=== PATIENT | female | born 1955 | race Caucasian/White ===

== ENCOUNTER 2018-12-21 08:16 | Inpatient (IN) ==
[2018-12-21] MEDS ORDERED: NS 1,000 ML IV ONE (08:26)
--- NOTE | 2018-12-21 08:35 | PROVIDER DOCUMENTATION ---
HPI-Respiratory General - General Chief Complaint: SEPSIS ALERT - P Stated Complaint: SOB Time Seen by Provider: 12/21/18 08:23 Source: patient Allergies/Adverse Reactions: Patient Allergies Allergy/AdvReac Type Severity Reaction Status Date / Time No Known Allergies Allergy Verified 07/28/18 18:20 Home Medications: Home Medication List Medication Instructions Recorded Confirmed Last Taken Type Aspirin 81 mg PO DAILY 02/25/12 02/25/12 02/28/12 History Fish Oil/Dha/Epa [Fish Oil 1,200 1 each PO DAILY 02/25/12 02/25/12 03/03/12 21:00 History mg Fish Oil] Gemfibrozil [Lopid] 600 mg PO BID 02/25/12 02/25/12 03/03/12 21:00 History Glipizide [Glucotrol] 10 mg PO DAILY 02/25/12 02/25/12 03/02/12 History Gluc Mcnulty/Chondro Mcnulty A/Vit C/Mn 1 each PO DAILY 02/25/12 02/25/12 03/03/12 07:00 History [Glucosamine Chondroitin Tab] Ibuprofen 800 mg PO BID 02/25/12 02/25/12 02/27/12 History Niacin E.r. [Niaspan] 1,000 mg PO DAILY 02/25/12 02/25/12 03/03/12 21:00 History Ranitidine [Zantac] 150 mg PO BID 03/04/12 03/04/12 03/03/12 21:00 History Tramadol [Ultram] 50 mg PO Q6H PRN PRN 03/04/12 03/04/12 03/01/12 History Naproxen Sodium [Anaprox Ds] 550 mg PO BID #20 tab 07/28/18 Unknown Rx Acetaminophen with Codeine 1 ea PO Q6H PRN PRN #14 tab 10/02/18 Unknown Rx [Tylenol with Codeine #3 Tablet] Cephalexin [Keflex] 500 mg PO 4XDAY #30 cap 10/02/18 Unknown Rx - History of Present Illness-Resp Nature of Presenting Problem: 63 y/o WF c/o moderate SOB since last night. Pt notes that last night that she felt that she couldnt get a "good breath" before be and awoke this am with B lower pain in her lungs. Pt also admits that she is being treated for UTI. Quality of Pain: reports: aching Severity in ED: reports: mild Onset/Duration: reports: 4-6 hours ago Timing: reports: still present Cough Quality/Degree: reports: mild Episode Frequency: no prior episodes Current Respiratory Medication Therapy: Initiated see nurses note Modifying Factors: improves with: coughing, oxygen Associated Symptoms: reports: shortness of breath. denies: chest pain/soreness Similar Symptoms Previously?: No Recently seen or treated by another doctor?: No Review of Systems - Adult - REVIEW OF SYSTEMS - ADULT Constitutional: reports: no symptoms reported, see HPI Eyes: reports: no symptoms reported, see HPI Ears, Nose, Mouth & Throat: reports: no symptoms reported, see HPI Cardiovascular: reports: no symptoms reported, see HPI Respiratory: reports: see HPI, cough, dyspnea on exertion, shortness of breath Gastrointestinal: reports: no symptoms reported, see HPI Genitourinary: reports: no symptoms reported, see HPI Musculoskeletal: reports: no symptoms reported, see HPI Integumentary: reports: no symptoms reported, see HPI Neurological: reports: no symptoms reported, see HPI Psychiatric: reports: no symptoms reported, see HPI Endocrine: reports: no symptoms reported, see HPI Hematologic/Lymphatic: reports: no symptoms reported, see HPI Allergic/Immunologic: reports: no symptoms reported, see HPI All Other Systems: Reviewed and Negative Past History - Adult - PAST MEDICAL HISTORY-ADULT Review of Records: reports: Nursing Assessment Review, Medications Reviewed, Social history reviewed & non-contributory. Major Childhood Illnesses: reports: denies history Cardiovascular: reports: hyperlipidemia Endocrine/Immune: reports: Diabetes - PRIOR SURGERIES/PROCEDURES Surgical/Procedure History: reports: cholecystectomy, tonsillectomy, hernia repair - IMMUNIZATION STATUS Childhood Immunizations: See Nurse Assessment Flu Vaccine: See Nurse Assessment - FAMILY HISTORY Family History: reviewed, not pertinent Physical Exam-General - PHYSICAL EXAM-ADULT Initial Vital Signs Reviewed: Yes - CONSTITUTIONAL General Appearance: alert, mild distress - EYES Eyes: PERRL/EOMI - HEAD, EARS, NOSE, MOUTH & THROAT HENMT: normocephalic/atraumatic, moist mucous membranes, normal ENT inspection - NECK Neck: non-tender, full range of motion, supple, normal inspection - RESPIRATORY Respiratory: chest non-tender, no pleuratic chest pain, no respiratory distress, no accessory muscle use, wheezing - CARDIOVASCULAR Cardiovascular: normal peripheral pulses, no edema, no gallop, no JVD, no murmur , tachycardia - GASTROINTESTINAL (ABDOMEN) Abdominal Exam: normal bowel sounds, non tender, soft, no organomegaly, no pulsatile mass - LYMPHATIC Lymphatic: no adenopathy - MUSCULOSKELETAL Back Exam: normal inspection, no CVA tenderness, no vertebral tenderness Extremity: normal range of motion, non-tender, normal gait, normal inspection, no pedal edema, no calf tenderness, normal capillary refill - SKIN Integumentary: normal color, normal turgor - NEUROLOGIC Neurologic: wearing apparel presser II-XII nml as tested, grossly normal, no motor/sensory deficits - PSYCHIATRIC Psych/Mental Status: normal mood/affect, normal thought content, normal thought process, oriented x 3 - HEART Score HEART Score: History: Slightly Suspicious HEART Score: ECG: Non-Specific Repolarization Disturbance/LBBB/PM HEART Score: Age: 45-65 Years HEART Score: Risk Factors for Atherosclerotic Disease: 1 or 2 Risk Factors HEART Score: Troponin: < or = Normal Limit Total HEART Score:: 3 Progress - PLAN OF CARE/RESULTS Progress/Plan/Lab Results: Vital Signs - 8 hr 12/21/18 08:19 12/21/18 08:21 Temperature 97.9 F 100.9 F H Pulse Rate 130 H Respiratory Rate 20 Blood Pressure 131/63 O2 Sat by Pulse Oximetry 86 L Laboratory Results - last 24 hr 12/21/18 12/21/18 12/21/18 08:38 08:38 08:38 WBC 25.45 H RBC 4.47 Hgb 12.0 Hct 39.5 MCV 88.4 MCH 26.8 L MCHC 30.4 L RDW Std Deviation 16.1 H Plt Count 280 MPV 12.0 H Immature Gran % (Auto) 0.5 Neut % (Auto) 94.0 H Lymph % (Auto) 1.7 L Crosby % (Auto) 3.3 Eos % (Auto) 0.3 Baso % (Auto) 0.2 Immature Gran # (Auto) 0.13 H Neut # (Auto) 23.94 H Lymph # (Auto) 0.43 L Crosby # (Auto) 0.84 H Eos # (Auto) 0.07 Baso # (Auto) 0.04 D-Dimer, Quantitative 0.66 H Specimen Type Sample Site pH pCO2 pO2 HCO3 Base Excess Oxyhemoglobin ABG O2 Sat (Calculated) ABG O2 Saturation ABG Carboxyhemoglobin ABG Methemoglobin Clifton Test A-a O2 Difference Total Hemoglobin Lactate Blood Gas Modality FiO2 % Sodium Potassium Chloride Carbon Dioxide Anion Gap BUN Creatinine Estimated GFR/1.73 m2 BUN/Creatinine Ratio Glucose Calculated Osmolality Calcium Total Bilirubin AST ALT Alkaline Phosphatase Troponin T < 0.010 Loy-Z-Pzcprbloghk Pept Total Protein Albumin Globulin Albumin/Globulin Ratio Plasma Lactate 12/21/18 12/21/18 12/21/18 08:38 08:38 08:38 WBC RBC Hgb Hct MCV MCH MCHC RDW Std Deviation Plt Count MPV Immature Gran % (Auto) Neut % (Auto) Lymph % (Auto) Crosby % (Auto) Eos % (Auto) Baso % (Auto) Immature Gran # (Auto) Neut # (Auto) Lymph # (Auto) Crosby # (Auto) Eos # (Auto) Baso # (Auto) D-Dimer, Quantitative Specimen Type Sample Site pH pCO2 pO2 HCO3 Base Excess Oxyhemoglobin ABG O2 Sat (Calculated) ABG O2 Saturation ABG Carboxyhemoglobin ABG Methemoglobin Clifton Test A-a O2 Difference Total Hemoglobin Lactate Blood Gas Modality FiO2 % Sodium 139 Potassium 3.7 Chloride 99 Carbon Dioxide 25 Anion Gap 16 BUN 22 Creatinine 0.9 Estimated GFR/1.73 m2 > 60 BUN/Creatinine Ratio 24 Glucose 163 H Calculated Osmolality 284 Calcium 9.7 Total Bilirubin 0.50 AST 22 ALT 18 Alkaline Phosphatase 76 Troponin T Nmr-E-Lwxqvhtlszf Pept 46 Total Protein 7.7 Albumin 4.7 Globulin 3.0 Albumin/Globulin Ratio 2.0 Plasma Lactate 1.7 12/21/18 09:50 WBC RBC Hgb Hct MCV MCH MCHC RDW Std Deviation Plt Count MPV Immature Gran % (Auto) Neut % (Auto) Lymph % (Auto) Crosby % (Auto) Eos % (Auto) Baso % (Auto) Immature Gran # (Auto) Neut # (Auto) Lymph # (Auto) Crosby # (Auto) Eos # (Auto) Baso # (Auto) D-Dimer, Quantitative Specimen Type ARTERIAL Sample Site L RADIAL pH 7.43 pCO2 41 pO2 50 L HCO3 26.7 H Base Excess 2.6 Oxyhemoglobin 87.1 L* ABG O2 Sat (Calculated) 13.4 L ABG O2 Saturation 91.9 L ABG Carboxyhemoglobin 3.80 H ABG Methemoglobin 1.4 Clifton Test YES A-a O2 Difference 48.0 Total Hemoglobin 10.9 L Lactate 1.50 Blood Gas Modality ROOM AIR FiO2 % 21.0 Sodium Potassium Chloride Carbon Dioxide Anion Gap BUN Creatinine Estimated GFR/1.73 m2 BUN/Creatinine Ratio Glucose Calculated Osmolality Calcium Total Bilirubin AST ALT Alkaline Phosphatase Troponin T Gsm-F-Jiesqnkgnhx Pept Total Protein Albumin Globulin Albumin/Globulin Ratio Plasma Lactate Orders Category Date Time Status Nursing- Obtain EKG ONCE Care 12/21/18 08:23 Active CHEST-1 VIEW [RAD] Stat Exams 12/21/18 08:[address] ANGIOGRM PULMONARY ARTERIES [CT] Stat Exams 12/21/18 10:06 Completed ABG [RESP] Routine Lab 12/21/18 09:50 Completed BLOOD CULTURE [BLDCUL] Stat Lab 12/21/18 08:25 Ordered CBC WITH ELECTRONIC DIFF [HEME] Stat Lab 12/21/18 08:38 Completed COMPREHENSIVE METABOLIC PANEL [CHEM] Stat Lab 12/21/18 08:38 Completed D-DIMER [COAG] Stat Lab 12/21/18 08:38 Completed LACTATE, PLASMA [CHEM] Stat Lab 12/21/18 08:38 Completed PRO B-NATRIURETIC PEPTIDE Stat Lab 12/21/18 08:38 Completed TROPONIN T Stat Lab 12/21/18 08:38 Completed 0.9% Sodium Chloride Inj [Ns] 1,000 ml Med 12/21/18 08:26 Discontinued IV 999 mls/hr CefTRIAXONE [Rocephin] 1 gm Med 12/21/18 10:41 Discontinued 0.9% Sodium Chloride Inj [Ns] 50 ml IV NOW Oxygen Device Stat Oth 12/21/18 08:25 Active EKG [EKG] Stat Ther 12/21/18 08:23 Draft Result Diagrams: 12/21/18 08:38 12/21/18 08:38 - CONSULTS/PCP/HOSPITALIST Notification #1 *Consult/PCP/Hospitalist*: Dr Cabrera Time Discussed: 11:38 Consult Disposition: Will see in ED, Admit Departure - Departure Date of Disposition Decision: 12/21/18 Time of Disposition Decision: 11:38 DIAGNOSIS: Pneumonia, UTI (urinary tract infection), Leukocytosis, Hypoxia Disposition: ADMITTED INPATIENT 09 Certified Medical Emergency: Emergent Condition: Fair Referrals and Follow-Ups: Clifton Craven MD [Primary Care Provider] - - Critical Care Note This patient required my direct & personal management of CC.: No Attestation - Physician/ SUKUMAR Attestation Patient care was provided by Advanced Practice Provider:: No The physician spent face to face time with patient:: Yes Advanced Practice Provider documentation review:: Supervising physician onsite and consulted in the evaluation and care of this patient. The physician did have a face to face encounter with the patient.
[2018-12-21 08:59] LABS: BASO# 0.04 X1000 (0.0-0.2); BASO% 0.2 % (0.0-0.8); EOS# 0.07 X1000 (0.0-0.7); EOS% 0.3 % (0.0-10.0); HEMATOCRIT 39.5 % (37.0-47.0); IMM GRAN# 0.13 X1000 (0.0-0.04); IMM GRAN% 0.5 % (0.0-0.5); LYMPH# 0.43 X1000 (1.2-3.4); LYMPH% 1.7 % (20.5-51.1); MCH 26.8 PG (27-31); MCHC 30.4 g/dL (33-37); MCV 88.4 FL (81-99); MONO# 0.84 X1000 (0.11-0.59); MONO% 3.3 % (1.7-9.3); NEUT# 23.94 X1000 (1.4-6.5); PLT 280 X1000 (130-400); RBC 4.47 XMIL (4.2-5.4); RDW 16.1 % (11.5-14.5); WBC 25.45 X1000 (4.8-10.8)
--- NOTE | 2018-12-21 09:13 | Diag Imaging Result Doc PS360 ---
EXAM: CHEST-1 VIEW HISTORY: sob TECHNIQUE: Chest single view COMPARISON: None. FINDINGS: The lungs are well expanded. The heart is not enlarged. The vessels are not distended. There are mild increased markings in the lung bases. Questionable tiny left effusion. IMPRESSION: Questionable small basilar infiltrates and tiny left effusion. Follow-up PA and lateral recommended. Electronically signed by Manfred Craig 12/21/2018 9:11 AM
[2018-12-21 09:26] LABS: AGAP 16; ALBUMIN 4.7 g/dL (3.5-5.0); ALKALINE PHOSPHATASE 76 U/L (32-104); BUN 22 mg/dL (8-22); CALCIUM 9.7 mg/dL (8.8-10.2); CHLORIDE 99 mmol/L (98-107); COSMO 284; CREATININE 0.9 mg/dL (0.5-0.9); ESTIMATED GFR > 60; GLUCOSE 163 mg/dL (70-104); GOT 22 U/L (10-30); GPT 18 U/L (10-36); POTASSIUM 3.7 mmol/L (3.5-5.1); SODIUM 139 mmol/L (136-145); TCO2 25 mmol/L (25-35); TOTAL PROTEIN 7.7 g/dL (6.3-8.3)
--- NOTE | 2018-12-21 09:28 | EKG Report ---
Test Performed on : 12/21/2018 08:27:24 AM Test Reason : sob Blood Pressure : / mmHG Vent. Rate : 114 BPM Atrial Rate : 114 BPM P-R Int : 188 ms QRS Dur : 080 ms QT Int : 294 ms P-R-T Axes : 062 -27 041 degrees QTc Int : 405 ms Sinus tachycardia. Otherwise normal ECG When compared with ECG of 01-MAR-2012 07:22, Vent. rate has increased BY 42 BPM Unconfirmed Result
[2018-12-21 10:19] LABS: BE 2.6 mmoll (-3.0-3.0); BLOOD TYPE ARTERIAL; HCO3-(ACT) 26.7 mmoll (20.0-26.0); METHB 1.4 % (0.0-1.5); O2(CT) 13.4 mL/dL (15.0-23.0); O2HB 87.1 % (95.0-99.0); PCO2(98.6) 41 mmHg (35-45); PO2(98.6) 50 mmHg (60-100); SAMPLE BLOOD; SAO2 91.9 % (95.0-100.0); THB 10.9 g/dL (11.5-17.4); pH(98.6) 7.43 (7.35-7.45)
[2018-12-21 10:23] LABS: ALLEN TEST YES; MODALITY ROOM AIR
[2018-12-21] MEDS ORDERED: ROCEPHIN 1 GM in NS 50 ML IV ONE (10:41)
--- NOTE | 2018-12-21 11:08 | Diag Imaging Result Doc PS360 ---
EXAM: CT ANGIOGRM PULMONARY ARTERIES HISTORY: difficulty breathing, left arm swollen TECHNIQUE: Images were obtained from the lung apices through bases as per standard protocol. This exam was performed using automated exposure control, adjustment of mA or kV according to patient size, and/or use of iterative reconstruction technique. COMPARISON: None. FINDINGS: Pulmonary artery: Somewhat limited opacification of the distal ranges.. No proximal filling defects are appreciated. There is no evidence for acute pulmonary embolism embolism. No evidence for right heart strain. The main pulmonary artery is enlarged suggesting pulmonary arterial hypertension. Mediastinum: The heart size appears normal. No pericardial effusion is appreciated. No pathologically enlarged lymph nodes are identified. No aortic aneurysm. There is no evidence for aortic dissection. No hilar lymphadenopathy. Airway: No large airway obstruction. No focal mass. Pulmonary parenchyma: There is marked pulmonary emphysema. There is increased linear attenuation within the apices consistent with scarring. There is a 1 cm more nodular component within the left apex. Consider CT thorax or PET in three months. There is bibasilar atelectasis or consolidation with trace bilateral pleural effusions. Limited view of the abdomen reveals hepatic steatosis, hepatomegaly, and cholecystectomy IMPRESSION: 1.No evidence for acute pulmonary embolism. 2.Marked pulmonary emphysema with pulmonary arterial hypertension. 3.Nodular component left apex associated with parenchymal scarring. Consider follow-up CT or PET/CT scan in three months. 4.Bibasilar consolidation or atelectasis with trace effusions. Electronically signed by Liya Patel 12/21/2018 11:06 AM
--- NOTE | 2018-12-21 11:34 | ED EKG INTERP ---
This chart was entered by Abigail Figueroa Scribe, acting as scribe for Ankur Padilla MD. EKG Interpretation - EKG Time of EKG reading by physician:: 08:27 EKG Read and Signed by:: Ankur Padilla EKG Interpretation (*Must complete 3 of following elements*): Normal Rate: 114 Rhythm: sinus tachycardia [place]: normal QRS: normal CO Interval: normal ST Wave: normal Attestation - Physician/ SUKUMAR Attestation Patient care was provided by Advanced Practice Provider:: No The physician spent face to face time with patient:: Yes Advanced Practice Provider documentation review:: Supervising physician onsite and consulted in the evaluation and care of this patient. The physician did have a face to face encounter with the patient. This chart was documented by the indicated scribe, (Abigail Figueroa Scribe) and accurately reflects the services I performed and decisions made by me, Ankur Padilla MD, as attested by the provider's signature.
[2018-12-21] MEDS ORDERED: ZOFRAN IV PRN (11:43)
[2018-12-21] MEDS ORDERED: TYLENOL PO PRN (11:43)
[2018-12-21] MEDS ORDERED: DUONEB (A & A) INH ONE (11:43)
[2018-12-21] MEDS: ROCEPHIN 1 GM in NS 50 ML IV SCH (11:45)
[2018-12-21] MEDS: DOXYCYCLINE 100 MG in NS 250 ML IV SCH ×3 (11:45→23:35)
[2018-12-21] MEDS: DUONEB (A & A) INH PRN ×2 (16:45→20:17)
[2018-12-21 17:55] LABS: INR 0.87; PROTIME 12.2 Seconds (11.0-16.0)
[2018-12-21 17:56] LABS: PTT 41.1 Seconds (22.3-41.8)
[2018-12-21] MEDS ORDERED: ULTRAM PO PRN (18:34)
[2018-12-21] MEDS: MOTRIN PO SCH ×2 (19:44→23:40)
[2018-12-21] MEDS: PATIENT'S OWN MED PO SCH (19:44)
[2018-12-21] MEDS: GLUCOSAMINE 500 MG/CHONDROITIN 400 MG PO SCH ×2 (19:44→23:40)
[2018-12-21] MEDS: LYRICA PO SCH ×2 (19:44→23:40)
[2018-12-21] MEDS: VICON-C PO SCH ×2 (19:44→23:39)
[2018-12-21] MEDS: FISH OIL CONCENTRATE PO SCH ×2 (19:44→23:40)
[2018-12-21] MEDS: LOPID PO SCH ×2 (19:44→23:40)
[2018-12-21] MEDS: ZANTAC PO SCH ×2 (19:45→23:39)
[2018-12-21 20:35] LABS: BILIRUBIN URINE NEGATIVE (NEGATIVE); BLOOD URINE NEGATIVE (NEGATIVE); CLARITY CLEAR (CLEAR); COLOR YELLOW; KETONE URINE TRACE mg/dL (NEGATIVE); LEUKOCYTES URINE NEGATIVE (NEGATIVE); NITRITE URINE NEGATIVE (NEGATIVE); PH URINE 6.5; PROTEIN URINE TRACE mg/dL (NEGATIVE); SP GRAVITY URINE 1.005; UROBILINOGEN URINE NORMAL
[2018-12-21 20:36] LABS: URINE BACTERIA 1+ /HFP; URINE CAST NONE SEEN /LPF; URINE CRYSTAL NONE SEEN /HPF; URINE EPITHELIAL CELLS <10 /HPF (<10); URINE SOURCE CLEAN CATCH; URINE WBC <10 /HPF (<10); URINE YEAST NONE SEEN /HPF
[2018-12-21] MEDS ORDERED: NAPROXEN SODIUM 550 MG PO SCH (21:00)
--- NOTE | 2018-12-22 03:59 | HISTORY AND PHYSICAL ---
CHIEF COMPLAINT: Shortness of breath. HISTORY OF PRESENT ILLNESS: The patient is a pleasant 63-year-old female who presented to the hospital with increased cough, congestion and shortness of breath. She notes that she has difficulty getting in a good breath. She has had wheezing at times. Denies fevers or chills. She does state that she has chronic and frequent urinary tract infections. ALLERGIES: No known drug allergies. MEDICATIONS: I do not have an active medication list, although appears to take aspirin, fish oil, a reflux medicine and diabetes medicine. REVIEW OF SYSTEMS: As noted above. Positive cough, congestion, shortness of breath and increased work of breathing. Denies any chest pain or palpitations. Denies fevers or chills. Does have urinary frequency and urgency. PAST MEDICAL HISTORY: Significant for diabetes, hyperlipidemia. PAST SURGICAL HISTORY: She has had a cholecystectomy, tonsillectomy and hernia repair. FAMILY HISTORY: Noncontributory. SOCIAL HISTORY: She does not smoke or drink. PHYSICAL EXAMINATION: VITAL SIGNS: Reviewed. Temperature 97 degrees, pulse 130s, respiratory 20, BP 131/63, saturation 86% on room air. GENERAL: The patient is awake, in mild to moderate respiratory distress. Very pleasant, currently not having chest pain. We will continue to follow. Continue antibiotics, breathing treatments, oxygen. We will rule out sepsis. White count at 25, glucose is at 16, and we will follow. cc: Lazaro Cabrera MD [facility]
[2018-12-22] MEDS: GLUCOTROL PO SCH ×2 (06:39→15:33)
[2018-12-22 07:45] LABS: HEMATOCRIT 35.1 % (37.0-47.0); HEMOGLOBIN 10.4 g/dL (12.0-16.0); MCH 26.7 PG (27-31); MCHC 29.6 g/dL (33-37); MPV 11.8 FL (7.4-10.4); RBC 3.9 XMIL (4.2-5.4); RDW 16.2 % (11.5-14.5); WBC 12.67 X1000 (4.8-10.8)
[2018-12-22 07:47] LABS: AGAP 14; ALBUMIN 4.1 g/dL (3.5-5.0); ALKALINE PHOSPHATASE 61 U/L (32-104); BUN 18 mg/dL (8-22); CALCIUM 9.7 mg/dL (8.8-10.2); CHLORIDE 101 mmol/L (98-107); COSMO 279; CREATININE 0.8 mg/dL (0.5-0.9); ESTIMATED GFR > 60; GLUCOSE 119 mg/dL (70-104); GOT 18 U/L (10-30); GPT 16 U/L (10-36); POTASSIUM 3.6 mmol/L (3.5-5.1); SODIUM 138 mmol/L (136-145); TCO2 24 mmol/L (25-35); TOTAL PROTEIN 7.1 g/dL (6.3-8.3)
[2018-12-22] MEDS: DUONEB (A & A) INH PRN ×5 (08:10→23:50)
[2018-12-22] MEDS: PATIENT'S OWN MED PO SCH ×2 (10:07→21:27)
[2018-12-22] MEDS: NIASPAN PO SCH ×2 (10:07→10:10)
[2018-12-22] MEDS: ASPIRIN PO SCH (10:07)
[2018-12-22] MEDS: FISH OIL CONCENTRATE PO SCH ×2 (10:08→21:25)
[2018-12-22] MEDS: GLUCOSAMINE 500 MG/CHONDROITIN 400 MG PO SCH ×2 (10:08→21:25)
[2018-12-22] MEDS: LOPID PO SCH ×2 (10:08→21:25)
[2018-12-22] MEDS: MOTRIN PO SCH ×2 (10:08→21:25)
[2018-12-22] MEDS: LYRICA PO SCH ×2 (10:08→21:26)
[2018-12-22] MEDS: ZANTAC PO SCH ×2 (10:08→21:25)
[2018-12-22] MEDS: DOXYCYCLINE 100 MG in NS 250 ML IV SCH ×2 (11:58→23:51)
[2018-12-22] MEDS: ROCEPHIN 1 GM in NS 50 ML IV SCH (14:34)
--- NOTE | 2018-12-22 18:17 | PROGRESS NOTE ---
DATE: 12/22/2018 SUBJECTIVE: The patient notes that she feels a lot better this morning. Has improved air movement. Still feels short of breath and fatigued. PHYSICAL EXAM: Temperature 99.1, pulse 92, respiratory rate 18, BP 127/65.General: Patient is in no current respiratory distress. HEENT: Normocephalic. Neck: Supple. Cardiovascular: Regular rate. No murmurs. Chest: Clear. No crackles currently. No wheezing. Abdomen: Soft, nondistended. Extremities: Moves all extremities. Neurologic: No changes. ASSESSMENT: 1. Pneumonia. 2. Chronic obstructive pulmonary disease with mild exacerbation. 3. Leukocytosis. 4. Sepsis secondary to pneumonia, resolved. 5. Diabetes. 6. Pulmonary hypertension. PLAN: We are going to continue Rocephin and doxycycline. Continue oxygen breathing treatments. Hopefully, she can improve and discharge home tomorrow. Her white count is improved from 25 down to 12. . cc: Lazaro Cabrera MD
--- NOTE | 2018-12-22 18:57 | HISTORY AND PHYSICAL ---
ADDENDUM: PHYSICAL EXAMINATION: VITAL SIGNS: Reviewed and examined. GENERAL: The patient is in mild respiratory distress. She is having difficulty completing sentences. HEENT: Normocephalic. NECK: Supple. CARDIOVASCULAR: Regular rate. CHEST: Decreased breath sounds bilaterally. No current wheezing. No crackles. ABDOMEN: Soft, obese, nondistended. EXTREMITIES: Moves all extremities. NEUROLOGIC: No changes. ASSESSMENT: 1. Pneumonia. 2. Leukocytosis. 3. Sepsis. 4. Diabetes. PLAN: We are going to admit her to the hospital. IV fluids, antibiotics, breathing treatments, place her on oxygen, and will follow. cc: Lazaro Cabrera MD
[2018-12-22] MEDS: VICON-C PO SCH (21:25)
[2018-12-23 05:52] LABS: HEMATOCRIT 32.6 % (37.0-47.0); HEMOGLOBIN 9.9 g/dL (12.0-16.0); MCHC 30.4 g/dL (33-37); MCV 89.1 FL (81-99); RBC 3.66 XMIL (4.2-5.4); RDW 15.6 % (11.5-14.5); WBC 7.36 X1000 (4.8-10.8)
[2018-12-23 06:09] VITALS: BP 123/66
[2018-12-23] MEDS: GLUCOTROL PO SCH (06:29)
[2018-12-23] MEDS: DUONEB (A & A) INH PRN (07:45)
[2018-12-23] MEDS ORDERED: DOXYCYCLINE PO SCH (09:00)
[2018-12-23] MEDS: NIASPAN PO SCH ×2 (09:34→09:39)
[2018-12-23] MEDS: GLUCOSAMINE 500 MG/CHONDROITIN 400 MG PO SCH (09:34)
[2018-12-23] MEDS: FISH OIL CONCENTRATE PO SCH (09:35)
[2018-12-23] MEDS: LYRICA PO SCH (09:35)
[2018-12-23] MEDS: MOTRIN PO SCH (09:35)
[2018-12-23] MEDS: ASPIRIN PO SCH (09:35)
[2018-12-23] MEDS: ZANTAC PO SCH (09:35)
[2018-12-23] MEDS: LOPID PO SCH (09:35)
[2018-12-23] MEDS: PATIENT'S OWN MED PO SCH (09:38)
--- NOTE | 2018-12-23 20:06 | DISCHARGE SUMMARY ---
ADMISSION DATE: 12/21/2018 DISCHARGE DATE: 12/23/2018 CONSULTATIONS: None. PERTINENT PROCEDURES: Chest x-ray showed questionable small basilar infiltrates and left tiny effusion. Pulmonary arteriogram showed no evidence of PE, marked pulmonary emphysema with pulmonary arterial hypertension, nodular component of left apex associated with parenchymal scarring. Consider follow-up CT or PET CT scan in 3 months, bibasilar consolidation or atelectasis with trace effusions. DISCHARGE DIAGNOSES: 1. Pneumonia, improved. 2. Leukocytosis, resolved. 3. Sepsis, resolved. 4. Diabetes. Continue home regimen. 5. Chronic obstructive pulmonary disease exacerbation mild and improved. 6. Pulmonary arterial hypertension. HOSPITAL COURSE: Briefly, Ms. Davis is a 63-year-old female with a past medical history of diabetes and hyperlipidemia, presented to [facility] ED with increased cough, congestion and shortness of breath, wheezing. Denied any fever or chills. Workup in the ED revealed leukocytosis, sepsis and pneumonia. She was initiated to the hospital, started on antibiotics, IV fluids, bronchodilators and supplemental O2. She has improved throughout the course of her hospitalization and will be discharged back home today. VITAL SIGNS: At time of discharge, temperature is 98 degrees, heart rate 66, respirations 20, blood pressure 120/66, O2 is 98%. DISCHARGE DIET: Regular. DISCHARGE MEDICATIONS: 1. Omnicef 30 mg p.o. b.i.d. 2. Doxycycline 1 p.o. b.i.d. 3. Zantac 150 mg p.o. b.i.d. 4. Ultram 50 mg p.o. q.6 hours p.r.n. 5. Ozempic 0.225 mg subcu q 7 days. 6. Niacin ER 1000 mg p.o. daily. 7. Lyrica 150 mg p.o. at bedtime. 8. Lyrica 75 mg p.o. daily. 9. Lopid 600 mg p.o. b.i.d. 10. Glucotrol 10 mg p.o. b.i.d. 11. Glucosamine chondroitin 1 each p.o. b.i.d. 12. Fish oil 1 each p.o. b.i.d. 13. Vitamin B complex 1 tab p.o. at bedtime. 14. Aspirin 81 mg p.o. daily. 15. Alpha lipoic acid 800 mg p.o. b.i.d. 16. Acetaminophen with codeine number 3, 1 each p.o. q.6 hours p.r.n. FOLLOWUP: Ms. Davis is being discharged back home with self care. She is to follow up with her primary care provider Dr. Justice Craven in the next 1 to 2 weeks. The patient may require repeat CT or PET-CT in 3 months. Dictated by TAIWO Nunes for Lazaro Cabrera MD cc: MD Clifton Francisco MD
--- NOTE | 2018-12-23 22:45 | DISCHARGE SUMMARY ---
ADMISSION DATE: 12/21/2018 DISCHARGE DATE: 12/23/2018 DISCHARGE DIAGNOSES: 1. Sepsis secondary to pneumonia, resolved. 2. Leukocytosis resolved. 3. Febrile illness, resolved. 4. Pneumonia. 5. Diabetes. 6. Chronic obstructive pulmonary disease. 7. Hyperlipidemia. 8. Pulmonary hypertension. CONSULTATIONS: None. PROCEDURES: Echo. BRIEF HOSPITAL COURSE: The patient is a 63-year-old female who presented to the hospital with increased cough, congestion, increased work of breathing, shortness of breath. She was noted to have a white count of 25. She had pneumonia and fever and was diagnosed with sepsis. Thankfully, she continued to improve. On discharge, her cough and congestion have all but resolved. Ambulating without any difficulty. She is noted to have a white count that has dropped down to 7. She is afebrile. Her CT was abnormal, demonstrating pulmonary hypertension. DISPOSITION: Patient will be discharged home. She will follow up outpatient with treatment facility of choice. Discussed with her that she needs to follow up in 1 to 2 weeks to re-evaluate her pneumonia. She will need to follow up on her pulmonary hypertension as well. No other changes made on her diet or medications otherwise. cc: Lazaro Cabrera MD
== END 2018-12-23 12:14 | disposition home or self-care (01) | DRG 871 ==
LOC: P.ED 08:16 → P.MEDSURG 08:17
PROVIDERS: ATTEND Family Medicine

== ENCOUNTER 2019-05-15 10:13 | Inpatient (IN) ==
--- NOTE | 2019-05-15 11:41 | Diag Imaging Result Doc PS360 ---
CHEST-PORTABLE - 05/15/2019 INDICATION: fever, cough COMPARISON: 12/30/2018 FINDINGS: There are some patchy interstitial infiltrates in the lung bases bilaterally. Heart size is top normal. No pneumothorax or pleural effusion. There is advanced COPD. IMPRESSION: COPD. Faint bibasilar interstitial infiltrates which may reflect pneumonia or viral infection. Electronically signed by Chris Mahan 05/15/2019 11:39 AM
[2019-05-15 14:19] LABS: URINE SOURCE CLEAN CATCH
[2019-05-15 14:24] LABS: BASO# 0.03 X1000 (0.0-0.2); BASO% 0.4 % (0.0-0.8); BILIRUBIN URINE SMALL (NEGATIVE); BLOOD URINE NEGATIVE (NEGATIVE); COLOR YELLOW; GLUCOSE URINE >1000 mg/dL (NEGATIVE); HEMATOCRIT 45.5 % (37.0-47.0); HEMOGLOBIN 14.7 g/dL (12.0-16.0); KETONE URINE 40 mg/dL (NEGATIVE); LEUKOCYTES URINE NEGATIVE (NEGATIVE); LYMPH# 2.76 X1000 (1.2-3.4); LYMPH% 33.5 % (20.5-51.1); MCH 27.3 PG (27-31); MCHC 32.3 g/dL (33-37); MCV 84.4 FL (81-99); MONO# 0.76 X1000 (0.11-0.59); MONO% 9.2 % (1.7-9.3); MPV 11.8 FL (7.4-10.4); NEUT% 56.9 % (42.2-75.2); NITRITE URINE NEGATIVE (NEGATIVE); PLT 257 X1000 (130-400); PROTEIN URINE 70 mg/dL (NEGATIVE); RBC 5.39 XMIL (4.2-5.4); RDW 16.2 % (11.5-14.5); SP GRAVITY URINE 1.037; TURBIDITY URINE CLEAR (CLEAR); UROBILINOGEN URINE 2 mg/dL (NORMAL); WBC 8.25 X1000 (4.8-10.8)
[2019-05-15 14:52] LABS: AGAP 20; ALB/GLOB RATIO 1.2; ALBUMIN 4.5 g/dL (3.5-5.0); ALKALINE PHOSPHATASE 82 U/L (32-104); BUN 22 mg/dL (8-22); CALCIUM 9.9 mg/dL (8.8-10.2); CHLORIDE 91 mmol/L (98-107); COSMO 275; CREATININE 0.9 mg/dL (0.5-0.9); ESTIMATED GFR > 60; GLUCOSE 124 mg/dL (70-104); GOT 80 U/L (10-30); GPT 55 U/L (10-36); POTASSIUM 3.5 mmol/L (3.5-5.1); SODIUM 135 mmol/L (136-145); TCO2 24 mmol/L (25-35); TOTAL BILIRUBIN 0.32 mg/dL (0.20-1.00); TOTAL PROTEIN 8.2 g/dL (6.3-8.3)
[2019-05-15 14:54] LABS: UR EPITHELIAL CELLS <10 /HPF (<10); URINE BACTERIA NEGATIVE /HPF; URINE RBC <10 /HPF (<10); URINE WBC <10 /HPF (<10)
[2019-05-15 14:55] LABS: URINE CASTS GRANULAR PRESENT; URINE CRYSTALS NONE SEEN; URINE SMALL ROUND CELLS NONE SEEN; URINE YEAST NONE SEEN
[2019-05-15] MEDS ORDERED: ZOSYN 3.375 GM in NS 50 ML IV ONE (15:17)
[2019-05-15] MEDS: NS 1,000 ML IV SCH (16:51)
--- NOTE | 2019-05-15 17:00 | HISTORY AND PHYSICAL ---
PRIMARY CARE PROVIDER: Radha MARAVILLA. CHIEF COMPLAINT: Fever. HISTORY OF PRESENT ILLNESS: Ms Tawanna Davis is a 63-year-old female who has recently been treated for upper respiratory infection, also treated for it three separate times. Apparently, she had been treated twice and then she went to the [facility] on a cruise from April 29 to May 06. When she returned on May 06, she started having symptoms of upper respiratory infection once again. No fever at that time. No shortness of breath. She took azithromycin and steroids and the sinuses had cleared up. Yesterday she claims to have had a fever of 99.9, a dry cough, sweats, sore throat, headache, but denies any shortness of breath. She is tolerating room air and she is currently been admitted and tested for COVID-19. The chest x-ray shows some pneumonia, so we will treat that as well. PAST MEDICAL HISTORY: 1. COPD, no home O2. 2. Diabetes mellitus type 2. 3. Hyperlipidemia. 4. Hypertension. 5. Obstructive sleep apnea, on CPAP at night. SURGICAL HISTORY: 1. Cholecystectomy. 2. Tonsillectomy and adenoidectomy. 3. Ventral hernia repair post cholecystectomy. SOCIAL HISTORY: Quit smoking in 2004. She started at the age of 11 and eventually worked her way up to two packs per day. Denies alcohol or illicit drug use. She is for the third time, has four adult children. 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 FAMILY HISTORY: Mother COPD. Father COPD. ALLERGIES: No known drug allergies. HOME MEDICATIONS: Have not been reconciled yet. REVIEW OF SYSTEMS: Fourteen point review of systems are complete and all were negative except for those mentioned in the above HPI. PHYSICAL EXAMINATION: VITAL SIGNS: Temperature 98.2 degrees, heart rate 101, respiratory rate 19, O2 saturation 96% on 2 L nasal cannula. She was down to 86% on room air. GENERAL: Ms. Tawanna Davis is a 63-year-old female. She is in no acute distress. She is able answer questions appropriately. HEENT: Atraumatic, normocephalic. Pupils equal, round, reactive to light. Extraocular movements intact. Mucous membranes are moist. NECK: Trachea midline. CARDIOVASCULAR: S1, S2. Regular rate and rhythm. No rubs, gallops, murmurs. No lower extremity edema. +2 dorsalis and radial pulses. Negative JVD or carotid bruits. PULMONARY: Clear to auscultation, bilateral breath sounds. No accessory muscle use or work of breathing noted. ABDOMEN: Soft, nontender, nondistended. Positive bowel sounds x4. EXTREMITIES: Moves all extremities equally. Full range of motion. NEUROLOGIC: Alert and oriented x3. Follows commands. Sensory is intact. SKIN: Warm, dry, intact. LABORATORY DATA: White blood cells 8000, hemoglobin 14, hematocrit 45, platelet count 257,000. Sodium 135, potassium 3.5, BUN 22, creatinine 0.9, glucose 124, calcium 9.9, bilirubin 0.32, AST 80, ALT 55, albumin is 4.5, lactate 1.0. Urinalysis 70 protein, greater than 1000 glucose, 40 ketones, small bilirubin, 2 urobilinogen. Blood cultures pending. Influenza A and B are both negative. IMAGING: Chest x-ray shows COPD with faint bibasilar infiltrates, may reflect pneumonia or viral infection. ASSESSMENT AND PLAN: 1. Fever that is subjective and reported mild hypoxia that required oxygen. High risk for a viral infection. Flu is negative. She is being tested for Coronavirus Disease 2019. She has been placed on droplet isolation and oxygen as needed. 2. Bibasilar pneumonia, could be viral versus bacterial. There is no elevated white count. Lactate is normal. We will go ahead and just do Zosyn. 3. Diabetes mellitus type 2. We will do pattern blood glucoses, sliding scale insulin, diabetic diet. 4. Hypertension. Waiting for home medications to be reconciled. 5. Obstructive sleep apnea. She can wear her CPAP from home. 6. Chronic obstructive pulmonary disease. No obvious signs of exacerbation. 7. Deep venous thrombosis prophylaxis. Sequential compression devices. Dictated by TAIWO Vasquez for Leroy Claros MD cc: TAIWO Vasquez
[2019-05-15] MEDS: ZOSYN 3.375 GM in NS 50 ML IV SCH (23:19)
[2019-05-15] MEDS: TYLENOL PO PRN (23:20)
[2019-05-15] MEDS: HUMULIN R SUBQ SCH (23:50)
[2019-05-16] MEDS: TYLENOL PO PRN ×4 (04:30→21:45)
[2019-05-16] MEDS: ZOSYN 3.375 GM in NS 50 ML IV SCH ×4 (04:48→21:43)
[2019-05-16 04:53] LABS: BASO# 0.03 X1000 (0.0-0.2); BASO% 0.3 % (0.0-0.8); HEMOGLOBIN 13.5 g/dL (12.0-16.0); IMM GRAN# 0.05 X1000 (0.0-0.04); IMM GRAN% 0.6 % (0.0-0.5); LYMPH% 17.1 % (20.5-51.1); MCH 26.6 PG (27-31); MCHC 31.4 g/dL (33-37); MCV 84.6 FL (81-99); MONO# 0.82 X1000 (0.11-0.59); MONO% 9.4 % (1.7-9.3); MPV 11.3 FL (7.4-10.4); NEUT# 6.37 X1000 (1.4-6.5); NEUT% 72.6 % (42.2-75.2); PLT 267 X1000 (130-400); RBC 5.08 XMIL (4.2-5.4); RDW 15.5 % (11.5-14.5); WBC 8.77 X1000 (4.8-10.8)
[2019-05-16 05:11] LABS: AGAP 18; ALB/GLOB RATIO 1.2; ALKALINE PHOSPHATASE 72 U/L (32-104); BUN 23 mg/dL (8-22); CALCIUM 9.4 mg/dL (8.8-10.2); CHLORIDE 95 mmol/L (98-107); COSMO 280; CREATININE 0.8 mg/dL (0.5-0.9); ESTIMATED GFR > 60; GLUCOSE 143 mg/dL (70-104); GOT 55 U/L (10-30); GPT 43 U/L (10-36); POTASSIUM 3.2 mmol/L (3.5-5.1); SODIUM 137 mmol/L (136-145); TCO2 24 mmol/L (25-35); TOTAL BILIRUBIN 0.39 mg/dL (0.20-1.00); TOTAL PROTEIN 7.3 g/dL (6.3-8.3)
--- NOTE | 2019-05-16 06:28 | Diag Imaging Result Doc PS360 ---
CHEST-PORTABLE - 05/16/2019 INDICATION: Pneumonia COMPARISON: 05/15/2019 FINDINGS: There are stable patchy interstitial infiltrates in the lung bases bilaterally. Heart size remains normal. No pneumothorax or significant pleural effusion. Stable COPD. IMPRESSION: No change from prior. Electronically signed by Chris Mahan 05/16/2019 6:26 AM
[2019-05-16] MEDS: NS 1,000 ML IV SCH ×2 (06:29→10:59)
[2019-05-16] MEDS: HUMULIN R SUBQ SCH ×4 (06:32→21:03)
[2019-05-16] MEDS ORDERED: CLARITIN PO PRN (12:50)
[2019-05-16] MEDS ORDERED: SEMAGLUTIDE 0.25 MG SQ SCH (13:00)
[2019-05-16] MEDS: LYRICA PO SCH ×2 (15:59→22:16)
--- NOTE | 2019-05-16 18:23 | PROGRESS NOTE ---
DATE: 05/16/2019 SUBJECTIVE: Patient has no major complaints. She is sitting up in bed. She is still having shortness of breath. She is still having cough. She has some diarrhea today. OBJECTIVE: Vital Signs: Blood pressure 128/65, heart rate 87, respiratory rate 16, temperature 98.6 degrees. Cardiovascular: Regular rate and rhythm. Pulmonary: Bilateral breath sounds. Clear to auscultation. GI: Soft, nontender, nondistended. Bowel sounds are positive. LABORATORY DATA: White count 8, hemoglobin and hematocrit 13 and 43. Potassium 3.2. AST and ALT are mildly elevated. PROBLEM LIST: 1. Pneumonia versus pneumonitis. She is at risk for Coronavirus Disease, although her risk factors are she went to the [facility] in April 29 through . In any case, she is still a little bit hypoxic. That is really the main thing about her staying here because clinically she looks okay. She has patchy interstitial infiltrates, so she is certainly at risk for Coronavirus Disease. Now, if she is afebrile and not hypoxic I think she can complete her rule out at home, but right now we need to work on trying to get her off oxygen, which we may or may not be able to do. I checked a procalcitonin level too. If it is negative it would confer more Coronavirus Disease and then we can consider stopping antibiotics if it is negative. If it is positive, we can continue a course of antibiotics. 2. Diabetes is stable. Anticipate discharge hopefully tomorrow, if the patient is stable. cc: Iain Urrutia MD
[2019-05-16] MEDS ORDERED: ALPHA LIPOIC ACID 600 MG PO SCH (21:00)
[2019-05-16] MEDS ORDERED: ETODOLAC 500 MG PO SCH (21:00)
[2019-05-16] MEDS: GLUCOSAMINE 500 MG/CHONDROITIN 400 MG PO SCH (21:43)
[2019-05-16] MEDS: ZOCOR PO SCH (21:44)
[2019-05-16] MEDS: FERROUS SULFATE PO SCH (21:44)
[2019-05-16] MEDS: PEPCID PO SCH (21:44)
[2019-05-16] MEDS: LOPID PO SCH (21:44)
[2019-05-16] MEDS: FISH OIL CONCENTRATE PO SCH (21:44)
[2019-05-16] MEDS: GLUCOPHAGE PO SCH (21:44)
[2019-05-17] MEDS: ZOSYN 3.375 GM in NS 50 ML IV SCH ×5 (01:12→22:10)
[2019-05-17] MEDS: NS 1,000 ML IV SCH (01:41)
[2019-05-17] MEDS: TYLENOL PO PRN ×3 (05:34→22:10)
[2019-05-17 06:20] LABS: BASO# 0.02 X1000 (0.0-0.2); BASO% 0.3 % (0.0-0.8); HEMATOCRIT 39.5 % (37.0-47.0); HEMOGLOBIN 12.4 g/dL (12.0-16.0); IMM GRAN# 0.03 X1000 (0.0-0.04); IMM GRAN% 0.4 % (0.0-0.5); LYMPH# 1.41 X1000 (1.2-3.4); LYMPH% 20.8 % (20.5-51.1); MCH 26.9 PG (27-31); MCHC 31.4 g/dL (33-37); MCV 85.7 FL (81-99); MONO# 0.57 X1000 (0.11-0.59); MONO% 8.4 % (1.7-9.3); MPV 11.4 FL (7.4-10.4); NEUT# 4.76 X1000 (1.4-6.5); NEUT% 70.1 % (42.2-75.2); PLT 249 X1000 (130-400); RBC 4.61 XMIL (4.2-5.4); RDW 15.4 % (11.5-14.5); WBC 6.79 X1000 (4.8-10.8)
[2019-05-17] MEDS: HUMULIN R SUBQ SCH ×4 (06:33→22:10)
[2019-05-17 06:52] LABS: AGAP 14; ALB/GLOB RATIO 1.4; ALKALINE PHOSPHATASE 67 U/L (32-104); BUN 15 mg/dL (8-22); CALCIUM 9.2 mg/dL (8.8-10.2); CHLORIDE 94 mmol/L (98-107); COSMO 274; CREATININE 0.8 mg/dL (0.5-0.9); ESTIMATED GFR > 60; GLUCOSE 155 mg/dL (70-104); GOT 52 U/L (10-30); GPT 42 U/L (10-36); POTASSIUM 3.3 mmol/L (3.5-5.1); SODIUM 135 mmol/L (136-145); TCO2 27 mmol/L (25-35); TOTAL BILIRUBIN 0.32 mg/dL (0.20-1.00); TOTAL PROTEIN 6.9 g/dL (6.3-8.3)
[2019-05-17] MEDS: INVOKANA PO SCH (11:36)
[2019-05-17] MEDS: GLUCOTROL PO SCH (11:36)
[2019-05-17] MEDS: FISH OIL CONCENTRATE PO SCH ×2 (11:37→22:10)
[2019-05-17] MEDS: LOPID PO SCH ×2 (11:37→22:10)
[2019-05-17] MEDS: GLUCOPHAGE PO SCH ×2 (11:37→22:10)
[2019-05-17] MEDS: VICON-C PO SCH (11:37)
[2019-05-17] MEDS: FERROUS SULFATE PO SCH ×2 (11:38→22:10)
[2019-05-17] MEDS: PEPCID PO SCH ×2 (11:38→22:10)
[2019-05-17] MEDS: ASPIRIN PO SCH (11:38)
[2019-05-17] MEDS: GLUCOSAMINE 500 MG/CHONDROITIN 400 MG PO SCH ×2 (11:38→22:10)
[2019-05-17] MEDS: LYRICA PO SCH (11:38)
[2019-05-17] MEDS: ULTRAM PO PRN (11:39)
[2019-05-17] MEDS: NON-FORMULARY MED (Dapagliflozin Propanediol [Farxiga] 0 MG) PO SCH (11:39)
[2019-05-17] MEDS ORDERED: KLOR-CON PO ONE (11:54)
[2019-05-17] MEDS ORDERED: DIFLUCAN PO ONE (14:36)
[2019-05-17] MEDS ORDERED: MONISTAT-7 VAG CREAM VAG ONE (14:49)
--- NOTE | 2019-05-17 17:06 | PROGRESS NOTE ---
DATE: 05/17/2019 SUBJECTIVE: The patient has no major complaints. OBJECTIVE: Vital Signs: Blood pressure 136/59, heart rate of 90, respiratory rate 18, temperature 99.2 degrees, saturating 91 percent on 2 L. Cardiovascular: Regular rate and rhythm. Pulmonary: Bilateral breath sounds clear to auscultation. Gastrointestinal: Abdomen soft, nontender, nondistended. Bowel sounds are positive. LABORATORY DATA: White count is 6, hemoglobin and hematocrit 12 and 39, platelets 249,000. Basic was normal. Potassium 3.3. PROBLEM LIST: 1. Pneumonia possible Coronavirus Disease-19 infection. We are waiting for Coronavirus Disease- 19 testing. She is hypoxic. She has interstitial infiltrates. She is still febrile. I think if she is stable and no fevers could be discharged home to self quarantine tomorrow pending her Coronavirus Disease-19 testing. Clinically, she is looking okay despite the fever. 2. Chronic obstructive pulmonary disease with mild exacerbation. She is doing okay. We have not used any steroids. She seems to be doing okay. 3. Diabetes is stable. Again anticipate possible discharge tomorrow, pending other workup. cc: Iain Urrutia MD
[2019-05-17] MEDS ORDERED: BLISTEX MEDICATED BERRY LIP BALM TOP PRN (18:03)
[2019-05-17] MEDS ORDERED: PNEUMOVAX 23 IM ONE (19:15)
[2019-05-17] MEDS ORDERED: LYRICA PO SCH (21:00)
[2019-05-17] MEDS: ZOCOR PO SCH (22:10)
[2019-05-18] MEDS: PEPCID PO SCH ×2 (02:08→10:16)
[2019-05-18] MEDS: LOPID PO SCH ×2 (02:10→10:19)
[2019-05-18] MEDS: ZOSYN 3.375 GM in NS 50 ML IV SCH ×3 (05:30→16:44)
[2019-05-18 05:55] LABS: BASO# 0.06 X1000 (0.0-0.2); HEMATOCRIT 40.7 % (37.0-47.0); HEMOGLOBIN 12.7 g/dL (12.0-16.0); IMM GRAN# 0.03 X1000 (0.0-0.04); IMM GRAN% 0.5 % (0.0-0.5); LYMPH# 2.58 X1000 (1.2-3.4); LYMPH% 41.6 % (20.5-51.1); MCH 26.9 PG (27-31); MCHC 31.2 g/dL (33-37); MCV 86.2 FL (81-99); MONO# 0.58 X1000 (0.11-0.59); MONO% 9.4 % (1.7-9.3); MPV 11.3 FL (7.4-10.4); NEUT# 2.95 X1000 (1.4-6.5); NEUT% 47.5 % (42.2-75.2); PLT 258 X1000 (130-400); RBC 4.72 XMIL (4.2-5.4); RDW 15.7 % (11.5-14.5)
[2019-05-18 06:38] LABS: AGAP 18; ALB/GLOB RATIO 1.2; ALBUMIN 3.7 g/dL (3.5-5.0); ALKALINE PHOSPHATASE 66 U/L (32-104); BUN 13 mg/dL (8-22); CALCIUM 9.1 mg/dL (8.8-10.2); CHLORIDE 95 mmol/L (98-107); COSMO 271; CREATININE 0.8 mg/dL (0.5-0.9); ESTIMATED GFR > 60; GLUCOSE 83 mg/dL (70-104); GOT 57 U/L (10-30); GPT 43 U/L (10-36); POTASSIUM 3.7 mmol/L (3.5-5.1); SODIUM 136 mmol/L (136-145); TCO2 23 mmol/L (25-35); TOTAL BILIRUBIN 0.31 mg/dL (0.20-1.00); TOTAL PROTEIN 6.8 g/dL (6.3-8.3)
[2019-05-18] MEDS: ULTRAM PO PRN ×2 (07:24→16:45)
[2019-05-18] MEDS: TYLENOL PO PRN ×2 (07:24→16:44)
[2019-05-18] MEDS: HUMULIN R SUBQ SCH ×3 (07:26→16:00)
[2019-05-18] MEDS ORDERED: LYRICA PO SCH (09:00)
[2019-05-18] MEDS: GLUCOTROL PO SCH (10:17)
[2019-05-18] MEDS: NON-FORMULARY MED (Dapagliflozin Propanediol [Farxiga] 0 MG) PO SCH (10:17)
[2019-05-18] MEDS: FISH OIL CONCENTRATE PO SCH (10:18)
[2019-05-18] MEDS: INVOKANA PO SCH (10:18)
[2019-05-18] MEDS: FERROUS SULFATE PO SCH (10:19)
[2019-05-18] MEDS: VICON-C PO SCH (10:19)
[2019-05-18] MEDS: GLUCOPHAGE PO SCH (10:19)
[2019-05-18] MEDS: ASPIRIN PO SCH (11:35)
[2019-05-18] MEDS: GLUCOSAMINE 500 MG/CHONDROITIN 400 MG PO SCH (13:56)
[2019-05-18 17:41] VITALS: BP 107/56
--- NOTE | 2019-05-24 11:36 | PROVIDER DOCUMENTATION ---
This chart was entered by Abigail Figueroa Scribe, acting as scribe for Kervin Levin CRNP. HPI-General Adult - General Chief Complaint: Cough Stated Complaint: FEVER,COUGH,SORE THROAT,DIZZY Time Seen by Provider: 05/15/19 10:44 Source: patient Allergies/Adverse Reactions: Patient Allergies Allergy/AdvReac Type Severity Reaction Status Date / Time No Known Allergies Allergy Verified 07/28/18 18:20 Home Medications: Home Medication List Medication Instructions Recorded Confirmed Last Taken Type Aspirin 81 mg PO DAILY 02/25/12 12/21/18 12/20/18 18:00 History Fish Oil/Dha/Epa [Fish Oil 1,200 1 each PO BID 02/25/12 12/21/18 12/13/18 18:00 History mg Fish Oil] Gemfibrozil [Lopid] 600 mg PO BID 02/25/12 12/21/18 12/20/18 18:00 History Glipizide [Glucotrol] 10 mg PO BID 02/25/12 12/21/18 12/20/18 18:00 History Gluc Mcnulty/Chondro Mcnulty A/Vit C/Mn 1 each PO BID 02/25/12 12/21/18 12/20/18 18:00 History [Glucosamine Chondroitin Tab] Niacin E.r. [Niaspan] 1,000 mg PO DAILY 02/25/12 12/21/18 03/03/12 21:00 History Ranitidine [Zantac] 150 mg PO BID 03/04/12 12/21/18 12/20/18 18:00 History Tramadol [Ultram] 50 mg PO Q6H PRN PRN 03/04/12 12/21/18 12/20/18 18:00 History Alpha Lipoic Acid 100 mg PO BID 12/21/18 12/21/18 12/20/18 18:00 History Pregabalin [Lyrica] 75 mg PO DAILY 12/21/18 12/21/18 12/20/18 07:00 History Pregabalin [Lyrica] 150 mg PO HS 12/21/18 12/21/18 12/20/18 18:00 History Vitamin B Complex [B Complex] 1 tab PO HS 12/21/18 12/21/18 12/20/18 18:00 History Acetaminophen with Codeine 1 ea PO Q6H PRN PRN 12/22/18 12/22/18 Unknown History [Acetaminophen-Cod #3 Tablet] Semaglutide [Ozempic] 0.25 mg SQ Q7D 12/22/18 12/22/18 12/15/18 History CefDINIR [Omnicef] 300 mg PO BID #10 cap 12/23/18 Unknown Rx Doxycycline 100 mg PO BID #10 tab 12/23/18 Unknown Rx - History of Present Illness -Gen Adult Nature of Presenting Problems: 63 yof presents to the ed with c/o sore throat fever and cough. pt sts saw pmd 6 days prior and finsihed her abx yesterday and sx have now returned. pt has onset of fever last night with other sx soon after. Location of Pain/Injury: reports: other (sore throat with cough) Quality of Pain: reports: aching Severity: reports: mild Onset/Duration: reports: last night Timing: reports: still present, intermittent Context/Activities at Onset: reports: light activity Modifying Factors: improves with: other (took abx and felt better but now sx have returned) Associated Symptoms: reports: cough, EENT symptoms, fever/chills. denies: back/neck pain, chest pain Similar Symptoms Previously?: Yes Recently seen or treated by another doctor?: Yes (pmd 6 days prior) Review of Systems - Adult - REVIEW OF SYSTEMS - ADULT Constitutional: reports: see HPI, chills, fever Eyes: reports: no symptoms reported Ears, Nose, Mouth & Throat: reports: see HPI, throat pain. denies: throat swelling Cardiovascular: denies: chest pain, palpitations, syncope Respiratory: reports: see HPI, cough. denies: shortness of breath, wheezing Gastrointestinal: denies: diarrhea, nausea, vomiting Genitourinary: reports: no symptoms reported Musculoskeletal: reports: no symptoms reported Integumentary: reports: no symptoms reported Neurological: reports: no symptoms reported Psychiatric: reports: no symptoms reported Endocrine: reports: no symptoms reported Hematologic/Lymphatic: reports: no symptoms reported Allergic/Immunologic: reports: no symptoms reported All Other Systems: Reviewed and Negative Past History - Adult - PAST MEDICAL HISTORY-ADULT Review of Records: reports: Old Records Reviewed, Nursing Assessment Review, Medications Reviewed, Social history reviewed & non-contributory. Major Childhood Illnesses: reports: denies history Cardiovascular: reports: HTN, hyperlipidemia Respiratory: reports: denies history Gastrointestinal: reports: denies history Obstetrical/Gynecological: reports: denies history Genitourinary: reports: denies history Musculoskeletal: reports: denies history Hand Dominance: Right Handed Neurological: reports: denies history Psychiatric: reports: denies history Endocrine/Immune: reports: Diabetes Other Conditions: reports: denies history - PRIOR SURGERIES/PROCEDURES Surgical/Procedure History: reports: cholecystectomy, tonsillectomy, hernia repair - IMMUNIZATION STATUS Childhood Immunizations: See Nurse Assessment Flu Vaccine: See Nurse Assessment - FAMILY HISTORY Family History: reviewed, not pertinent - SOCIAL HISTORY Smoking: quit greater than 1 year Substance Use: denies Living Situation: family Physical Exam-General - PHYSICAL EXAM-ADULT Initial Vital Signs Reviewed: Yes - CONSTITUTIONAL General Appearance: appears well, alert, no apparent distress (nontoxic in apeparance) - EYES Eyes: PERRL/EOMI, pink conjunctivae - HEAD, EARS, NOSE, MOUTH & THROAT HENMT: moist mucous membranes - NECK Neck: non-tender, full range of motion, supple, normal inspection - RESPIRATORY Respiratory: chest non-tender, lungs clear, normal breath sounds - CARDIOVASCULAR Cardiovascular: normal peripheral pulses, tachycardia (101) - CHEST (BREASTS) Chest/Breast: deferred - GASTROINTESTINAL (ABDOMEN) Abdominal Exam: normal bowel sounds, non tender, soft - GENITOURINARY Female Genitalia/Pelvic Exam: deferred Rectal Exam: deferred Hemoccult Exam: deferred - LYMPHATIC Lymphatic: no adenopathy - MUSCULOSKELETAL Back Exam: no CVA tenderness, no vertebral tenderness Extremity: normal range of motion, non-tender, normal gait, normal inspection - SKIN Integumentary: normal color, normal turgor, warm/dry - NEUROLOGIC Neurologic: grossly normal - PSYCHIATRIC Psych/Mental Status: normal mood/affect, normal thought content, normal thought process, oriented x 3 Progress - PLAN OF CARE/RESULTS Progress/Plan/Lab Results: Vital Signs - 8 hr 05/15/19 10:18 05/15/19 11:00 Temperature 98.2 F Pulse Rate 101 H Respiratory Rate 19 Blood Pressure 152/82 O2 Sat by Pulse Oximetry 91 L 96 Orders Category Date Time Status NEWS Score 2-4:Order NEWS Lactate Series NOW Care 05/15/19 11:02 Active CHEST-PORTABLE [RAD] Stat Exams 05/15/19 11:03 Ordered BLOOD CULTURE [BLDCUL] Stat Lab 05/15/19 11:04 Uncollected CBC WITH ELECTRONIC DIFF [HEME] Stat Lab 05/15/19 11:03 Uncollected COMPREHENSIVE METABOLIC PANEL [CHEM] Stat Lab 05/15/19 11:03 Uncollected Flu Swab [INFLUENZA SCREEN A/B] Stat Lab 05/15/19 11:00 Received LACTATE, PLASMA [CHEM] Q3H Lab 05/15/19 11:15 Uncollected LACTATE, PLASMA [CHEM] Q3H Lab 05/15/19 14:15 Uncollected LACTATE, PLASMA [CHEM] Q3H Lab 05/15/19 17:15 Uncollected LACTATE, PLASMA [CHEM] Stat Lab 05/15/19 11:04 Uncollected UA NIMS W/REFLEX CULT [URINALYSIS] Stat Lab 05/15/19 11:03 Uncollected Result Diagrams: 05/15/19 13:58 05/15/19 13:58 - REASSESSMENT Reassessment #1 Time Reassessed: 14:59 Status: improving (pt is resting in bed) - XRAY 1 XRAY: Bilateral XRAY Study: Chest Impression: See EMR Report (IMPRESSION: COPD. Faint bibasilar interstitial infiltrates which may reflect pneumonia or viral infection. Electronically signed by Chris Mahan 05/15/2019 11:39 AM 05/15/19 [id number]) - CONSULTS/PCP/HOSPITALIST Notification #1 *Consult/PCP/Hospitalist*: hospitalist Time Discussed: 14:59 (spoke with fuentes) Reason/Comments: hypoxia Consult Disposition: Will see in ED, Admit Departure - Departure Date of Disposition Decision: 05/15/19 Time of Disposition Decision: 15:15 DIAGNOSIS: Hypoxia Pneumonia Qualifiers: Pneumonia type: due to unspecified organism Laterality: bilateral Disposition: ADMITTED INPATIENT 09 Certified Medical Emergency: Emergent Condition: Critical Additional Instructions: ED Follow Up Instructions: You have been treated by a care provider in the Emergency Department. These instructions are being provided to you so you can have an understanding of how to care for yourself upon discharge. Upon discharge from the Emergency Department, you are responsible for making arrangements for follow-up care by a physician of your choice. Take all prescribed medications as directed. Return to the Emergency Department immediately for any new or worsening symptoms. You may call the Physician Referral phone number at [phone] to obtain a list of Physicians who are taking new patients. Referrals and Follow-Ups: Radha Salomon CRNP [Primary Care Provider] - - Critical Care Note This patient required my direct & personal management of CC.: No Attestation - Physician/ SUKUMAR Attestation Patient care was provided by Advanced Practice Provider:: Yes Advanced Practice Provider:: Kervin Levin Advanced Practice Provider documentation review:: The Mid-level provider documentation, treatment plan and medical decision making was reviewed by the physician who agrees with all treatment and medical decision making by the MLP. The physician spent face to face time with patient:: No Advanced Practice Provider documentation review:: Supervising physician onsite and consulted in the evaluation and care of this patient. The physician did not have a face to face encounter with the patient. This chart was documented by the indicated scribe, (Abigail Figueroa Scribe) and accurately reflects the services I performed and decisions made by me, Kervin Levin CRNP, as attested by the provider's signature.
--- NOTE | 2019-06-01 19:37 | DISCHARGE SUMMARY ---
ADMISSION DATE: 05/15/2019 DISCHARGE DATE: 05/18/2019 DISCHARGE DIAGNOSES: 1. Coronavirus disease-19 or severe acute respiratory [id number] infection. 2. Hypoxia. 3. Chronic obstructive pulmonary disease exacerbation. Briefly, this is a 63-year-old female presenting with fever and cough. She had been tested for Coronavirus disease-19 which, at that point, we did not get a test prior to discharge, but she was flu negative, pneumonia. She was placed on Zosyn. She slowly improved, but she did have fevers intermittently. She also had persistent hypoxia, but qualified for O2. She did not have any fevers prior to discharge. 102 was the night before, but as she was stable and breathing, she was felt stable for discharge. DISCHARGE MEDICATIONS: 1. Zocor 40. 2. Alpha lipoic acid 600 b.i.d. 3. Vitamin B complex daily. 4. Aspirin 81 daily. 5. Etodolac 500 b.i.d. 6. Dapagliflozin 5 daily. 7. Fish oil b.i.d. 8. Fluticasone daily. 9. Glipizide 10 daily. 10. Ferrous sulfate 65 daily. 11. Invokana 300 daily. 12. Lopid 600 b.i.d. 13. Loratadine 10 p.r.n. 14. Lyrica 75 t.i.d. 15. Metformin 500 b.i.d. 16. Multivitamin daily. 17. Ozempic 0.2 subcu weekly. 18. Vitamin D3 daily. 19. Zantac 150 daily. 20. Augmentin, which was a new medicine, 875 q.12 for a week. 21. Azithromycin 500 daily for a week. DISCHARGE CONDITION: Stable. cc: MD Radha Arreola CRNP
== END 2019-05-18 18:39 | disposition home health service (06) | DRG 193 ==
LOC: ED 10:13 → 4N 10:14 → SUATTDRO 10:14 → 4N 17:01
PROVIDERS: ATTEND Internal Medicine